=== PATIENT | female | born 1990 | race African-American/Black ===

== ENCOUNTER 2021-03-21 09:20 | Emergency (ER) | payer BC, SELFPAY | END 2021-03-21 10:59 | disposition home or self-care (01) | LOC: CSHERS 09:20 | DX: A08.4 Viral intestinal infection, unspecified (principal); J45.909 Unspecified asthma, uncomplicated; F17.210 Nicotine dependence, cigarettes, uncomplicated | CPT/HCPCS: 99283 ==

== ENCOUNTER 2021-12-01 08:10 | Emergency (ER) | payer BC ==
[2021-12-01] MEDS ORDERED: Acetaminophen 500 MG TAB ONE (08:34)
[2021-12-01] MEDS ORDERED: diphenhydrAMINE 25 MG CAP ONE (08:37)
[2021-12-01] MEDS ORDERED: Metoclopramide HCl 10 MG TAB ONE (08:37)
== END 2021-12-01 08:54 | disposition home or self-care (01) ==
LOC: CSHERS 08:10
DX: U07.1 COVID-19 (principal); F17.210 Nicotine dependence, cigarettes, uncomplicated
CPT/HCPCS: 99284; U0003; U0005